=== PATIENT | female | born 1970 | race Hispanic/Latino ===

== ENCOUNTER 2023-02-04 08:34 | Emergency (ER) | payer BC, SELFPAY ==
[2023-02-04] MEDS ORDERED: Amoxicillin/Potassium Clav 875 MG TAB ONE (09:31)
[2023-02-04] MEDS ORDERED: Ibuprofen 200 MG TAB ONE (09:31)
== END 2023-02-04 10:12 | disposition home or self-care (01) ==
LOC: CSHERS 08:34
DX: L03.211 Cellulitis of face (principal)
CPT/HCPCS: 99283

== ENCOUNTER 2023-02-05 09:49 | Emergency (ER) | payer SELFPAY | END 2023-02-05 10:32 | disposition home or self-care (01) | LOC: CSHERS 09:49 | DX: L03.211 Cellulitis of face (principal) | CPT/HCPCS: 99283 ==